=== PATIENT | female | born 1990 | race Two or more races ===

== ENCOUNTER 2019-04-03 21:07 | Emergency (ER) | payer OTHER ==
--- NOTE | 2019-04-03 21:08 | ER Report ---
History and Physical Time Seen By MD: 21:15 HPI/ROS CHIEF COMPLAINT: Left 4th finger injury HISTORY OF PRESENT ILLNESS: Patient is a 28-year-old female here with complaints of left 4th finger injury laceration after getting her finger stuck in a dry primer powder blender. There is a small linear laceration to the mid phalanx with mild bleeding. Neurovascular exam intact REVIEW OF SYSTEMS: Constitutional: No fever, no chills. Musculoskeletal: 2 cm linear laceration to the left 4th finger mid phalanx Skin: No rashes. Neurological: Neurovascular exam intact Allergies: Coded Allergies: No Known Drug Allergies (Unverified , 04/03/19) Home Meds Active Scripts Cephalexin Monohydrate (CEPHALEXIN) 500 Mg Cap, 500 MG PO Q6H for 7 Days, #28 CAP 0 Refills Prov:NEYMAR CALDERA DO 04/03/19 Constitutional Vital Sign - Last 24 Hours 04/03/19 21:12 Temp 98.2 Pulse 86 Resp 20 B/P (MAP) 127/94 Pulse Ox 93 O2 Delivery Room Air Physical Exam General Appearance: The patient is alert, has no immediate need for airway protection and no signs of toxicity. No acute distress Neurological: Neurovascular exam intact Skin: 2 cm linear horizontal laceration to the left 4th digit mid phalanx Musculoskeletal: No bony abnormality identified DIFFERENTIAL DIAGNOSIS: After history and physical exam differential diagnosis was considered for superficial linear laceration, retained foreign body Medical Decision Making ED Course/Re-evaluation ED Course Patient is a 28-year-old female here with complaints of a 2 cm linear laceration to the left 4th digit mid phalanx, superficial in nature with mild bleeding. Wound was closed using 3 4-0 sutures Ethilon, vascular exam intact after procedure was completed. Ring block was completed prior to suturing. Removal in 7-10 days recommended. Patient tolerated procedure well. Return precautions pr ovided. Procedure Laceration repair: A 2 cm linear laceration to the left 4th digit mid phalanx was identified. Ring block was completed using approximately 4 mL of 1% lidocaine without epinephrine. Laceration was closed using 3 4-0 Ethilon sutures. Patient tolerated procedure well. Removal in 7-10 days recommended. Decision to Disposition Date: Apr 03, 2019 Decision to Disposition Time: 21:56 Depart Departure Latest Vital Signs Vital Signs Date Time Temp Pulse Resp B/P (MAP) Pulse Ox O2 Delivery O2 Flow Rate FiO2 7/2/19 21:12 98.2 86 20 127/94 93 Room Air Impression: Primary Impression: Finger laceration Condition: Improved Disposition: HOME OR SELF-CARE New Scripts Cephalexin Monohydrate (CEPHALEXIN) 500 Mg Cap 500 MG PO Q6H for 7 Days, #28 CAP 0 Refills Prov: NEYMAR CALDERA DO 04/03/19 Patient Instructions: Finger Laceration (ED) Additional Instructions: Please monitor your finger for signs of infection. Your finger laceration was closed using 3 sutures. Please have your sutures removed in 7-10 days. If he develops signs of infection, please start taking Keflex one tablet 4 times daily for 7 days. Do not take this antibiotic and was you develop signs of infection. Please return promptly if you develop signs of infection NEYMAR CALDERA DO Apr 03, 2019 21:08
[2019-04-03 21:12] VITALS: BP 127/94
[2019-04-03] MEDS ORDERED: DIPHTH/TETANUS/ACEL. PERTUSSIS IM ONLY ONE (21:45)
[2019-04-03] MEDS ORDERED: CEPH500C24 PO (22:02)
== END 2019-04-03 22:12 | disposition home or self-care (01) ==
LOC: ER 21:20
DX: S61.215A Laceration without foreign body of left ring finger without damage to nail, initial encounter (principal)
CPT/HCPCS: 90471; 90715; 99283